=== PATIENT | female | born 1975 ===

== ENCOUNTER 2021-04-29 10:10 | Day surgery (SDC) | payer OTHER ==
[~2021-04-29 10:10] MED LIST: AMBIEN10 MG PO; ATIVAN1 M1 PO; BENICAR20 MG PO; EFFEXOR PO; FERROPLEX PO; FOLIC PO; MOBIC PO; PREVACID30 MG PO; TOPROL XL25 M1 PO; ZANAFLEX2 M1 PO; ZYPREXA5 MG PO
== END 2021-04-29 16:20 | disposition home or self-care (01) ==
LOC: CIR.AMB 10:10
PROVIDERS: ATTEND Orthopaedic Surgery
DX: M77.11 Lateral epicondylitis, right elbow (principal); G56.31 Lesion of radial nerve, right upper limb; Z20.822 Contact with and (suspected) exposure to COVID-19